=== PATIENT | male | born 1990 | race African-American/Black ===

== ENCOUNTER 2017-01-01 01:00 | Emergency (ER) | payer SELFPAY ==
[~2017-01-01] VITALS: Ht 175.3 cm; Wt 120.0 kg
[~2017-01-01 01:00] MED LIST: Z.0.NO CURRENT MEDS
[2017-01-01 01:04] VITALS: BP 144/96; PULSE 98; RESP 16; TEMP 98.1; O2SAT 97
[2017-01-01] MEDS: KETOROLAC TROMETHAMINE 60 MG/2 ML (IM) VIAL IM ONE ×2 (01:44→01:45)
--- NOTE | 2017-01-01 01:51 | PD ---
HPI Chief Complaint: Fall Time Seen by Provider: 01:51 Travel History International Travel<30 days: No Contact w/Intl Traveler<30days: No Traveled to known affect area: No History of Present Illness HPI 26-year-old male presents to the emergency department for evaluation of right hand pain and lower back pain following an alleged slip and fall at [facility]. The patient states he does not know how he fell or how he landed. He states he just fell and now has lower back pain and right hand pain. Denies any focal deficits.. No saddle paresthesia, loss of bowel or bladder, or lower extremity weakness. He did not strike his head or lose consciousness. He has no other symptoms to report. [facility] Past Medical History Medical History: Denies Significant Hx Diminished Hearing: No Immunizations Current: Yes Tetanus Vaccination: > 5 Years Influenza Vaccination: Yes Social History Alcohol Use: No Tobacco Use: No Substance Use: No Allergies-Medications (Allergen,Severity, Reaction): Coded Allergies: methocarbamol (Verified Allergy, Unknown, RASH, 01/01/17) Reported Meds & Prescriptions Reported Meds & Active Scripts Active Ibuprofen 800 Mg Tab 800 Mg PO Q8H PRN Reported No Current Meds (Miscellaneous Medication) Misc Review of Systems Except as stated in HPI: all other systems reviewed are Neg Physical Exam Narrative GENERAL: Well-nourished male patient, with bizarre affect, ambulatory but with no acute distress. SKIN: Focused skin assessment warm/dry. HEAD: Atraumatic. Normocephalic. EYES: Pupils equal and round. No scleral icterus. No injection or drainage. ENT: No nasal bleeding or discharge. Mucous membranes pink and moist. NECK: Trachea midline. No JVD. CARDIOVASCULAR: Regular rate and rhythm. No murmur appreciated. RESPIRATORY: No accessory muscle use. Clear to auscultation. Breath sounds equal bilaterally. GASTROINTESTINAL: Abdomen soft, non-tender, nondistended. Hepatic and splenic margins not palpable. MUSCULOSKELETAL: No obvious deformities. No clubbing. No cyanosis. No edema. Tenderness elicited palpation of the lumbar spine. Patient can flex and extend all digits of the right hand. There is no deformity. No edema. Distal pulses are palpable. Cap refill within normal limits. Equal strength bilateral upper and lower extremities. NEUROLOGICAL: Awake and alert. No obvious cranial nerve deficits. Motor grossly within normal limits. Normal speech. PSYCHIATRIC: Appropriate mood and affect; insight and judgment normal. Data Data Last Documented VS Vital Signs Date Time Temp Pulse Resp B/P (MAP) Pulse Ox O2 Delivery O2 Flow Rate FiO2 01/01/17 02:36 01/01/17 01:24 Room Air 01/01/17 01:04 98.1 98 16 97 Orders Orders Spine, Lumbar - Ltd (Ap & Lat) (01/01/17 ) Ketorolac Inj (Toradol Inj) (01/01/17 01:45) Hand, Complete ([id number]) (01/01/17 ) [facility] Medical Decision Making Medical Screen Exam Complete: Yes Emergency Medical Condition: Yes Medical Record Reviewed: Yes Differential Diagnosis Low back strain versus fracture versus discogenic pain versus radiculopathy Narrative Course 26-year-old male presents to emergency department for evaluation following an alleged slip and fall at [facility]. Patient appears without distress. He does report tenderness to palpation of the lumbar spine. X-ray imaging of the hand and lumbar spine are without acute abnormality. Patient is counseled on care, encouraged follow-up with primary care provider, and return immediately with any acute worsening of symptoms. Of note, the patient was offered pain medication but refused. Diagnosis Primary Impression: Low back strain Qualified Codes: S39.012A - Strain of muscle, fascia and tendon of lower back , initial encounter Additional Impression: Contusion of right hand Qualified Codes: S60.221A - Contusion of right hand, initial encounter Referrals: Primary Care Physician Patient Instructions: General Instructions, Low Back Strain (ED), Lower Back Exercises (GEN) Additional Instructions: Ice and/or warm moist heat may help to alleviate symptoms Follow-up with your primary care provider inside avoid activity that exacerbates pain Avoid heavy lifting, bending, twisting Return immediately with any acuity of symptoms Med/Other Pt SpecificInfo: Prescription(s) given Scripts Ibuprofen (Ibuprofen) 800 Mg Tab 800 MG PO Q8H Y for Pain/Inflammation, #30 TAB 0 Refills Prov: Kenyatta Blackwood 01/01/17 Disposition: 01 DISCHARGE HOME Condition: Stable Kenyatta Blackwood Jan 01, 2017 01:51
--- NOTE | 2017-01-01 02:31 | RADRPT ---
EXAM DATE/TIME: 01/01/2017 02:06 [facility] COMPARISON: No previous studies available for comparison. INDICATIONS : Patient complains of right hand pain after allegedly slipping on spilt fluid and landing on right mejia d. Patient states pain in mostly in 1st metacarpal. MEDICAL HISTORY : None. SURGICAL HISTORY : None. ENCOUNTER: Initial ACUITY: 1 day PAIN SCORE: 4/10 LOCATION: Right Hand FINDINGS: Three view examination of the right hand demonstrates no soft tissue swelling, dislocation, or fractu re. The carpal bones appear intact. The interphalangeal and metacarpophalangeal joints are intact. Bony mineralization is normal. CONCLUSION: 1. No acute fracture or dislocation. Hardeep Alexis MD on January 01, 2017 at 2:29 Board Certified Radiologist. This report was verified electronically.
--- NOTE | 2017-01-01 02:33 | RADRPT ---
EXAM DATE/TIME: 01/01/2017 02:05 [facility] COMPARISON: No previous studies available for comparison. INDICATIONS : Patient complains of lower back after allegedly slipping on spilt fluid and landing on back. MEDICAL HISTORY : None. SURGICAL HISTORY : None. ENCOUNTER: Initial ACUITY: 1 day PAIN SCORE: 4/10 LOCATION: L-Spine FINDINGS: Two view examination was performed. There are five non-rib bearing vertebral bodies. The vertebral bodies are in normal alignment without evidence of subluxation or scoliosis. The disc spaces are gina ntained. The pedicles are intact. Bony mineralization is normal. No fracture is identified. CONCLUSION: 1. No acute fracture or subluxation. Hardeep Alexis MD on January 01, 2017 at 2:30 Board Certified Radiologist. This report was verified electronically.
[2017-01-01] MEDS ORDERED: IBUP800T23 PO (02:38)
== END 2017-01-01 02:46 | disposition home or self-care (01) ==
LOC: NEPD 01:00
DX: S39.012A Strain of muscle, fascia and tendon of lower back, initial encounter (principal); S60.221A Contusion of right hand, initial encounter; W01.0XXA Fall on same level from slipping, tripping and stumbling without subsequent striking against object, initial encounter; Y92.512 Supermarket, store or market as the place of occurrence of the external cause
CPT/HCPCS: 72100; 73130; 99284; J1885